=== PATIENT | male | born 1990 ===

== ENCOUNTER 2024-02-26 10:46 | Emergency (ER) | payer OTHER, SELFPAY ==
--- NOTE | ~2024-02-26 | XR_ITS ---
XR chest 1V portable DATE: 02/26/2024 11:19 INDICATION: Pain TECHNIQUE: Portable upright AP chest on February 26, 2024 at 1115 hours COMPARISON: None FINDINGS: Normal heart size. No hilar or mediastinal enlargement. The lungs appear moderately hyperin flated but clear of infiltrate or consolidation. No pleural effusion or pulmonary vascular congestion or pneumothorax. Included skeletal structures are unremarkable. IMPRESSION: No active cardiopulmonary disease Reviewed, dictated and finalized at location B.
--- NOTE | 2024-02-26 10:48 | ECG_ITS ---
Measurements Intervals [place] Rate: 72 P: 65 OR: 153 QRS: 91 QRSD: 97 T: 73 QT: 398 QTc: 436 Interpretive Statements SINUS RHYTHM NORMAL ECG NO PREVIOUS ECG AVAILABLE FOR COMPARISON Electronically Signed On 02-26-2024 14:47:48 CDT by Pete Cody M.D.
[2024-02-26 10:58] VITALS: BP 130/88; PULSE 76; RESP 14; TEMP 36.6; O2SAT 100
[2024-02-26 11:09] LABS: Basophils Absolute Auto 0.1 K/mm3 (0.0-0.1); Basophils Percent Auto 0.9 % (0.2-1.2); Eosinophils Absolute Auto 0.2 K/mm3 (0-0.3); Eosinophils Percent Auto 2.8 % (0-4.4); Hematocrit 46.6 % (42.0-52.0); Immature Granulocyte Absolute 0.03 K/mm3 (0.00-0.031); Immature Granulocyte Percent A 0.5 % (0-0.5); Lymphocytes Absolute Auto 2.53 K/mm3 (0.9-3.2); Lymphocytes Percent Auto 43.6 % (18.3-44.2); Mean Corpuscular HGB Conc 32.2 g/dl (32-36); Mean Corpuscular Hemoglobin 28.5 pg (26-34); Mean Corpuscular Volume 88.6 fl (80-100); Mean Platelet Volume 8.6 fl (7.4-10.4); Monocytes Absolute Auto 0.6 K/mm3 (0.1-0.6); Monocytes Percent Auto 10.5 % (2.6-8.5); Neutrophils Absolute Auto 2.4 K/mm3 (1.3-6.7); Neutrophils Percent Auto 41.7 % (45.5-73.1); Platelet Count Result 153 k/mm3 (150-375); Red Blood Count 5.26 M/mm3 (4.6-6.20); Red Cell Distribution Width 13.2 % (11.5-14.5); White Blood Count 5.8 K/mm3 (4.5-10.0)
[2024-02-26 11:21] LABS: Alanine Aminotransferase 50 U/L (6-50); Albumin Level 4.3 g/dL (3.5-5.1); Alkaline Phosphatase 98 U/L (38-126); Anion Gap 4 mmol/L (4-12); Aspartate Amino Transferase 41 U/L (17-59); Bilirubin,Total 0.8 mg/dL (0.2-1.3); Blood Urea Nitrogen 16 mg/dL (9-20); Calcium 9.2 mg/dL (8.4-10.2); Carbon Dioxide 31 mmol/L (22-30); Chloride 101 mmol/L (98-107); Estimated CRCL calculation 105 ml/min; Estimated Glomerular Filt Rate > 60; Glucose 97 mg/dL (65-110); Lipase 48 U/L (23-300); Potassium 3.9 mmol/L (3.4-5.0); Sodium 136 mmol/L (137-145)
[2024-02-26 11:24] LABS: INR 0.9; Partial Thromboplastin Time 30.2 Seconds (22.3-36.8); Prothrombin Time 12.6 Seconds (11.1-14.7)
[2024-02-26 11:34] LABS: D Dimer 0.37 ug/mL (<0.48); Troponin I < 0.012 ng/mL (0.000-0.034)
[2024-02-26] MEDS: KETOROLAC 30 MG/ML VIAL (*BKC) IV PUSH (11:40)
[2024-02-26] MEDS: ASPIRIN 81 MG CHEWABLE TABLET 324 MG PO (12:30)
[2024-02-26 12:32] VITALS: BP 117/78; PULSE 76; RESP 19; O2SAT 97
[2024-02-26 13:47] VITALS: BP 121/81; PULSE 80; RESP 15; O2SAT 100
--- NOTE | 2024-02-26 13:48 | ECG_ITS ---
Measurements Intervals [place] Rate: 70 P: 48 SC: 146 QRS: 96 QRSD: 87 T: 67 QT: 378 QTc: 408 Interpretive Statements SINUS RHYTHM NORMAL ECG COMPARED TO ECG 02/26/2024 10:53:55 NO SIGNIFICANT CHANGES Electronically Signed On 02-26-2024 14:53:46 CDT by Pete Cody M.D.
[2024-02-26 14:20] LABS: Troponin I < 0.012 ng/mL (0.000-0.034)
[2024-02-26 14:34] VITALS: BP 116/72; PULSE 82; RESP 20; O2SAT 98
--- NOTE | 2024-02-26 14:37 | ED.CHESTPAIN ---
HPI - Chest Pain General Chief Complaint: Chest Pain Stated Complaint: chest pain Time Seen by Provider: 02/26/24 10:56 History of Present Illness HPI narrative: Patient is a 34-year-old male who presents ER with sudden onset chest pain. It occurred at 9:00 a.m.. Sharp and central. Went to the right shoulder and right neck. No history of coronary disease. Reports family history of a prothrombin clotting disorder but he has never been tested for. No pain with deep breath. No exertional dyspnea. No fevers or chills or sweats. Related Data Allergies Allergy/AdvReac Type Severity Reaction Status Date / Time azithromycin Allergy Unknown Skin Verified 11/29/17 21:20 Reaction cefaclor Allergy Unknown rash Verified 11/29/17 21:20 Penicillins Allergy Unknown Unknown Verified 02/26/24 10:49 Review of Systems Review of Systems: All systems reviewed & are unremarkable except as noted in HPI and below Constitutional: Constitutional: Reports no additional constitutional complaints ENT: Reports system reviewed and no additional complaints, except as documented Cardiovascular: Cardiovascular: Reports chest pain, Denies rapid heart rate, Reports radiating jaw, neck or arm pain and Denies slow heart rate Respiratory: Respiratory: Reports no additional respiratory complaints Gastrointestinal: Gastrointestinal: Reports no additional gastrointestinal complaints Musculoskeletal: Musculoskeletal: Reports no additional musculoskeletal complaints PMFSH Past Medical History Medical History (Updated 02/26/24 @ 18:27 by Ramses Cruz MD) ADHD Surgical History Surgical History (Updated 02/26/24 @ 18:27 by Ramses Cruz MD) No history of previous surgery Exam Narrative: GENERAL: Well-appearing, well-nourished, and in no acute distress. HEAD: Normocephalic, atraumatic. ENT: Mucous membranes moist. NECK: Supple. CHEST: Clear to auscultation. No respiratory distress. HEART: Regular rate and rhythm. No murmur heard. Normal peripheral pulses. ABDOMEN: Soft, nontender, nondistended. EXTREMITIES: Normal range of motion. No edema. SKIN: Warm, dry, no rash. NEURO: Alert and oriented x3. PSYCH: Normal mood and affect. Course Course Emergency Course: patient resting comfortably. Troponin negative x2. D-dimer negative as well. EKG and labs reassuring as is chest x-ray. Recommend discharge home follow-up with PCP for further evaluation. Discussed return precautions. Patient verbalized understanding. Vital Signs Vital signs: Vital Signs Temperature 98 F 02/26/24 10:58 Pulse Rate 76 02/26/24 10:58 Respiratory Rate 14 02/26/24 10:58 Blood Pressure 130/88 02/26/24 10:58 Pulse Oximetry 100 02/26/24 10:58 Oxygen Delivery Room Air 02/26/24 10:58 Temperature 98 F 02/26/24 10:58 Pulse Rate 82 02/26/24 14:34 Respiratory Rate 20 02/26/24 14:34 Blood Pressure 116/72 02/26/24 14:34 Pulse Oximetry 98 02/26/24 14:34 Oxygen Delivery Room Air 02/26/24 10:58 MDM - Chest Pain Lab Data 02/26/24 11:03 02/26/24 11:03 Labs: Lab Results 02/26/24 02/26/24 Range/Units 11:03 13:50 WBC 5.8 (4.5-10.0) K/mm3 RBC 5.26 (4.6-6.20) M/mm3 Hgb 15.0 (14.0-18.0) g/dL Hct 46.6 (42.0-52.0) % MCV 88.6 (80-100) fl MCH 28.5 (26-34) pg MCHC 32.2 (32-36) g/dl RDW 13.2 (11.5-14.5) % Plt Count 153 (150-375) k/mm3 MPV 8.6 (7.4-10.4) fl Immature Gran % (Auto) 0.5 (0-0.5) % Neut % (Auto) 41.7 L (45.5-73.1) % Lymph % (Auto) 43.6 (18.3-44.2) % [place] % (Auto) 10.5 H (2.6-8.5) % Eos % (Auto) 2.8 (0-4.4) % Baso % (Auto) 0.9 (0.2-1.2) % Lymph # (Auto) 2.53 (0.9-3.2) K/mm3 [place] # (Auto) 0.6 (0.1-0.6) K/mm3 Eos # (Auto) 0.2 (0-0.3) K/mm3 Baso # (Auto) 0.1 (0.0-0.1) K/mm3 Abs Immat Gran (auto) 0.03 (0.00-0.031) K/mm3 Absolute Neuts (auto) 2.4 (1.3-6.7) K/mm3 Absolute Nucl
== END 2024-02-26 15:05 | disposition home or self-care (01) ==
PROVIDERS: Emergency Provider Emergency Medicine; PCP Family Medicine Sports Medicine
DX: R07.9 Chest pain, unspecified (principal)
CPT/HCPCS: 36415; 71045; 80053; 83690; 84484; 85025; 85380; 85610; 85730; 93005; 96374; 99284; A9270; J1885

== ENCOUNTER 2024-05-30 13:56 | Emergency (ER) | payer OTHER, SELFPAY ==
[2024-05-30 14:04] VITALS: BP 123/82; PULSE 93; RESP 16; TEMP 36.6; O2SAT 100
[2024-05-30 14:39] LABS: EDUAAPPEAR Clear; EDUABILI Negative; EDUABLOOD Trace; EDUACOLOR1 Yellow; EDUAGLUCOSE 2+; EDUAKETONE Negative; EDUALEUKO Trace; EDUANITRATE Negative; EDUAPROTEIN Negative; EDUASPGRAVITY 1.015; EDUAUROBILI 0.2
--- NOTE | 2024-05-30 14:56 | ED.MALEGU ---
HPI - Male Genitourinary General Chief complaint: Urogenital-Male Stated complaint: Uti Symptoms Time Seen by Provider: 05/30/24 14:48 Source: patient and RN notes reviewed Mode of arrival: ambulatory Limitations: no limitations History of Present Illness HPI Narrative: Patient presents today complaining of a one-week history of dysuria, difficulty emptying the bladder, and feelings of bladder fullness. Patient was seen 6 days ago at an urgent care in [place] where he states he had blood work and urine test done and was placed on doxycycline. He was called and told all of his tests were normal, but he continues to have symptoms. Denies abdominal pain, back pain, fever, hematuria. Related Data Allergies Allergy/AdvReac Type Severity Reaction Status Date / Time azithromycin Allergy Unknown Skin Verified 05/30/24 14:47 Reaction cefaclor Allergy Unknown rash Verified 05/30/24 14:47 Penicillins Allergy Unknown Unknown Verified 05/30/24 14:47 Review of Systems Review of Systems: CONSTITUTIONAL: Denies body aches, fever, chills, or sweats. EYES: Denies visual changes, redness, or discharge. ENT: Denies rhinorrhea, congestion, sore throat, or otalgia. CARDIOVASCULAR: Denies chest pain, palpitations, or edema. RESPIRATORY: Denies cough or dyspnea. GASTROINTESTINAL: Denies abdominal pain, nausea, vomiting, or diarrhea. GENITOURINARY: + dysuria, bladder fullness, incomplete emptying SKIN: Denies rash, itching, or wounds. MUSCULOSKELETAL: Denies back pain, joint pain, or myalgia. NEUROLOGIC: Denies headache, numbness, tingling, or weakness. PSYCH: Denies depression or anxiety. PMFSH Past Medical History Medical History ADHD Surgical History Surgical History No history of previous surgery Comments At time of signature, I have reviewed and agree with nursing past medical, surgical, social and family history unless otherwise noted. Please see nursing chart for further information. There is no relevant family history pertinent to the presenting complaint Exam Narrative: GENERAL: Well-appearing, well-nourished, and in no acute distress. HEAD: Normocephalic, atraumatic. EYES: EOMI. No redness or drainage. Conjunctivae normal. ENT: Mucous membranes pink and moist. NECK: Normal AROM. CHEST: No respiratory distress. EXTREMITIES: Normal range of motion. No edema. SKIN: Warm, dry, no rash. Capillary refill normal. Normal skin turgor. NEURO: No focal deficits. Alert and oriented x3. Gait steady. PSYCH: Normal affect. No signs of depression or anxiety. Course Course Level of Care: Express Care Visit Vital Signs Vital signs: Vital Signs Temperature 98 F 05/30/24 14:04 Pulse Rate 93 05/30/24 14:04 Respiratory Rate 16 05/30/24 14:04 Blood Pressure 123/82 05/30/24 14:04 Pulse Oximetry 100 05/30/24 14:04 Temperature 98 F 05/30/24 14:04 Pulse Rate 93 05/30/24 14:04 Respiratory Rate 16 05/30/24 14:04 Blood Pressure 123/82 05/30/24 14:04 Pulse Oximetry 100 05/30/24 14:04 Reviewed MDM - Male Genitourinary MDM Narrative Medical decision making narrative: Urinalysis shows glucose, trace blood, and trace leukocytes. Patient states he has had glucose in his urine in past. Will try him on a course of Bactrim with the culture pending. Instructed patient to follow-up with urology if culture comes back negative. He agrees with plan. Anticipatory guidance given. Differential Diagnosis Differential diagnosis: Likely urinary tract infection and urethritis Lab Data Attestation: I reviewed the patient's lab results. Labs: Lab Results 05/30/24 Range/Units 14:37 POC Urine Color Yellow POC Urine Clarity Clear POC Urine pH 6.0 POC Ur Specif [place] 1.015 POC Urine Protein Negative POC Ur Glucose (UA) 2+ POC Urine Ketones Ne
== END 2024-05-30 15:09 | disposition home or self-care (01) ==
PROVIDERS: Emergency Provider Nurse Practitioner; PCP Family Medicine Sports Medicine
DX: N30.01 Acute cystitis with hematuria (principal)
CPT/HCPCS: 81003; 87086; 99213; G0463